=== PATIENT | male | born 1995 | race Caucasian/White ===

== ENCOUNTER 2016-06-16 21:54 | Emergency (ER) | payer BC ==
--- NOTE | 2016-06-16 22:19 | ED ---
Nausea/Vomiting/Diarrhea HPI - General Chief complaint: Nausea/Vomiting/Diarrhea Stated complaint: [employer] shunt Time Seen by Provider: 06/16/16 22:02 Source: patient, family Mode of arrival: ambulatory Limitations: no limitations - History of Present Illness Initial comments: This a 21-year-old male with a history of hydrocephalus who is had ENVIRONMENTAL SERVICES MANAGER shunt since an infant and last had a change in the age of 11 who is had 2 days of nausea with some vomiting and global headache some feeling of being off balance he states she's more nauseated when he supine and sitting upright. He denies any fevers chills sweats no focal weakness. Right now it he has no nausea denies any blurry vision any vision loss or other symptoms. The concern is that his ENVIRONMENTAL SERVICES MANAGER shunt might be malfunctioning. It was done at [facility]. MD complaint: nausea, other - Related Data Previous Rx's Medication Instructions Recorded Amoxic-Pot Clav 875-125Mg 1 tab PO Q12HR #20 tablet 06/16/16 [Augmentin 875-125] Allergies Allergy/AdvReac Type Severity Reaction Status Date / Time No Known Allergies Allergy Verified 06/16/16 22:16 Review of Systems ROS Statement: Those systems with pertinent positive or pertinent negative responses have been documented in the HPI. ROS Other: All systems not noted in ROS Statement are negative. Past Medical History Additional Past Medical History / Comment(s): ENVIRONMENTAL SERVICES MANAGER shunt Past Surgical History: Hernia Repair Additional Past Surgical History / Comment(s): ENT surgery, ENVIRONMENTAL SERVICES MANAGER shunt Past Psychological History: No Psychological Hx Reported Smoking Status: Never smoker Past Alcohol Use History: None Reported Past Drug Use History: Marijuana General Exam - General Exam Comments Initial Comments: This is a well-developed well-nourished awake alert oriented times 3 male Limitations: no limitations General appearance: alert, anxious Head exam: Present: atraumatic, normocephalic, normal inspection, other (The bolus on is palpable in the right parietal scalp area no tenderness palpation shunt is palpable down to the neck.) Eye exam: Present: normal appearance, PERRL, EOMI. Absent: scleral icterus, conjunctival injection, periorbital swelling ENT exam: Present: normal exam, mucous membranes moist Neck exam: Present: normal inspection, full ROM, other (The shunt is palpable down the right side of the neck no tenderness palpation). Absent: tenderness, meningismus, lymphadenopathy Respiratory exam: Present: normal lung sounds bilaterally. Absent: respiratory distress, wheezes, rales, rhonchi, stridor Cardiovascular Exam: Present: regular rate, normal rhythm, normal heart sounds. Absent: systolic murmur, diastolic murmur, rubs, gallop, clicks GI/Abdominal exam: Present: soft, normal bowel sounds. Absent: distended, tenderness, guarding, rebound, rigid Extremities exam: Present: normal inspection, full ROM, normal capillary refill. Absent: tenderness, pedal edema, joint swelling, calf tenderness Back exam: Present: normal inspection Neurological exam: Present: alert, oriented X3, CN II-XII intact Psychiatric exam: Present: normal affect, normal mood Skin exam: Present: warm, dry, intact, normal color. Absent: rash Course Vital Signs 06/16/16 21:56 Temperature 98.3 F Pulse Rate 87 Respiratory 20 Rate Blood Pressure 140/71 O2 Sat by Pulse 98 Oximetry - Reevaluation(s) Reevaluation #1: 06/16/16 23:51 Further information gained from the patient's mother apparently there is a respiratory illness going through the family at this time. Medical Decision Making - Medical Decision Making I did discuss findings with the patient and family patient will be discharged he 'll be placed on antibiotics is a follow-up with his doctor and return when necessary - Radiology Data Radiology results: report reviewed (I did review the imaging and reports these shunt appears be within normal parameters with no evidence of any hydrocephalus. There is evidence of right mastoid fluid.), image reviewed Disposition Clinical Impression: Sinusitis, Feared condition not demonstrated Disposition: HOME SELF-CARE Condition: Good Instructions: Sinusitis (ED), Acute Headache (ED) Prescriptions: Amoxic-Pot Clav 875-125Mg [Augmentin 875-125] 1 tab PO Q12HR #20 tablet
--- NOTE | 2016-06-16 22:58 | XR ---
EXAM: XR Abdomen 1 view. CLINICAL HISTORY: Reason: Pain TECHNIQUE: Frontal view of the abdomen/pelvis. COMPARISON: No relevant prior studies available. FINDINGS/impression: Nonobstructive bowel gas pattern. No free air. PLASTER PATTERN CASTER shunt curling in the pelvis.
--- NOTE | 2016-06-16 23:05 | XR ---
EXAM: XR Chest, 1 View. CLINICAL HISTORY: Reason: Pain TECHNIQUE: Frontal view of the chest. COMPARISON: No relevant prior studies available. FINDINGS: Lungs: Unremarkable. No consolidation. Pleural spaces: Unremarkable. No pneumothorax. Heart: No cardiomegaly. Mediastinum: Single surgical clip projecting over the mediastinum, likely for ligation of a patent ductus arteriosus. Bones: No acute fracture. [employer]OR [employer] INTELLIGENCE shunt to the right chest IMPRESSION: No acute pulmonary disease.
--- NOTE | 2016-06-16 23:06 | XR ---
EXAM: XR Skull, 1, 2 or 3 Views. CLINICAL HISTORY: Reason: Pain TECHNIQUE: Frontal and/or lateral views of the skull. COMPARISON: No relevant prior studies available. FINDINGS: Ventriculoperitoneal shunt is noted in the right parietal approach. No abnormal shunt discontinuity here or to the right neck. Straightening of the cervical lordosis. No prevertebral soft tissue swelling. IMPRESSION: Unremarkable [employer] shunt
--- NOTE | 2016-06-16 23:41 | CT ---
EXAM: CT Head Without Intravenous Contrast. CLINICAL HISTORY: Reason: Pain TECHNIQUE: Axial computed tomography images of the head/brain without intravenous contrast. CTDI is 13.7 mGy and DLP is 1064 mGy-cm This CT exam was performed using one or more of the following dose reduction techniques: automated exposure control, adjustment of the mA and/or kV according to patient size, and/or use of iterative reconstruction technique. COMPARISON: Skull films of same day. FINDINGS: There is a ventriculoperitoneal shunt in a right parietal approach, tip near the frontal horn of the left lateral ventricle. No ventriculomegaly to suggest shunt malfunction. Question a dysgenesis of the splenium of the corpus callosum. No intracranial hemorrhage or mass effect. The calvarium is intact. There is right mastoid fluid, which should be correlated for symptoms of mastoiditis. Minimal paranasal sinus mucosal thickening IMPRESSION: No ventriculomegaly to suggest shunt malfunction. 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 Right mastoid fluid. Potential mastoiditis.
[2016-06-17 00:08] VITALS: BP 137/86; PULSE 82; RESP 18; TEMP 98.1
== END 2016-06-17 00:08 | disposition home or self-care (01) ==
LOC: EC 21:54
DX: J32.9 Chronic sinusitis, unspecified (principal); R11.2 Nausea with vomiting, unspecified; Z98.2 Presence of cerebrospinal fluid drainage device
CPT/HCPCS: 70250; 70450; 71010; 74000; 99284